=== PATIENT | male | born 1995 | race Caucasian/White ===

== ENCOUNTER 2017-01-07 12:03 | Emergency (ER) | payer OTHER ==
[~2017-01-07] VITALS: Ht 193 cm; Wt 108.8 kg
[2017-01-07 12:09] VITALS: BP 141/75; PULSE 70; TEMP 36.7; Ht 193 cm; Wt 108.8 kg
[2017-01-07 12:11] VITALS: O2SAT 96
[2017-01-07] MEDS ORDERED: ESCI10TA17 PO (12:37)
[2017-01-07] MEDS ORDERED: MULT-506 PO (12:37)
--- NOTE | 2017-01-07 13:12 | EMERGENCY ROOM VISIT NOTE ---
ED Visit Note First contact with patient: 12:44 CHIEF COMPLAINT: Rash HISTORY OF PRESENT ILLNESS: This 21-year-old male patient presents to the emergency department ambulatory complaining of a rash to the elbows and hands which started few weeks ago. The patient denies fever, chills, nausea, or loss of appetite. They deny any URI symptoms. The patient has tried topical hydrocortisone, Compound W. The patient states the rash is itchy and rates the discomfort as 4/10. No change in food, soap, detergents, or other environmental factors. No new medications. No weakness or numbness. REVIEW OF SYSTEMS: A 6 system review of systems was completed with positives and pertinent negatives listed in the HPI. ALLERGIES: Latex MEDICATIONS: See nursing notes PMH: Anxiety/depression SOCIAL HISTORY: The patient is not employed. He lives with his parents. PHYSICAL EXAM: Vital Signs: Reviewed Nurse's notes, vital signs stable. GENERAL : This is a 21-year-old male, in no acute distress, well-developed, well- nourished. SKIN: There are multiple scattered, papular vesicles over the lateral aspects of the fingers and dried areas that are papular lesions to the elbows. Capillary refill less than 2 seconds. EMERGENCY DEPARTMENT COURSE: The patient was seen and examined. The patient has a rash to the bilateral elbows and over the lateral aspects of the hands. It is almost vesicular in nature. This may represent a contact dermatitis or possibly dyshidrotic eczema. The exact etiology is not clear. He does not appear to be cellulitic. He does not have a fever. There is no significant redness. I do not suspect that this represents plantar warts. The patient will be given stronger topical steroid. He should follow up with dermatology if symptoms are not improving. He should return to the ER with worsening symptoms. Current/Historical Medications Scheduled Escitalopram (Lexapro), 10 MG PO DAILY Multivitamin (Multivitamin), 1 TAB PO DAILY Triamcinolone Acet (Triamcinolone Acetonide), 1 APPLN TOP BID Allergies Coded Allergies: Latex1 -Allergic Contact Dermititis (Unverified Adverse Reaction, Intermediate, RASH, 01/07/17) Vital Signs Date Time Temp Pulse Resp B/P (MAP) Pulse Ox O2 Delivery O2 Flow Rate FiO2 01/07/17 12:11 96 Room Air 01/07/17 12:09 36.7 70 20 141/75 96 Room Air Departure Information Impression Primary Impression: Dermatitis Dispostion Home / Self-Care Condition GOOD Prescriptions Triamcinolone Acet (Triamcinolone Acetonide) 45 Appln/15 Gm Oint 1 APPLN TOP BID for 7 Days, #1 TUBE Prov: Richelle Garsia PA-C 01/07/17 Referrals No Doctor, Assigned (PCP) Patient Instructions Contact Dermatitis, ED Dermatitis Atopic Eczema, My [facility] Additional Instructions Try the steroid cream for 1 week Recheck with your family doctor or follow up with dermatology Return with worsening symptoms
[2017-01-07] MEDS ORDERED: TRMO115 TOP (13:20)
== END 2017-01-07 13:35 | disposition home or self-care (01) ==
LOC: C.EDB 12:04 → C.EDD 13:35
DX: L30.9 Dermatitis, unspecified (principal); F41.9 Anxiety disorder, unspecified; F32.9 Major depressive disorder, single episode, unspecified; Z79.899 Other long term (current) drug therapy

== ENCOUNTER → 2017-06-16 | Outpatient (CLI) | payer BC, OTHER ==
[~2017-06-16] MED LIST: ESCI10TA17 PO; MULT-506 PO
--- NOTE | 2017-06-19 11:12 | POLYSOMNOGRAPH REPORT ---
CLINICAL DATA: 22-year-old male with BMI of 29.[address] Manzo and Dr. Artem Flowers for evaluation of snoring and possible sleep apnea. On the evening of 06/16/2017, a home sleep apnea test was performed using a [employer] type 3 monitor. RECORDING RESULTS: Total recording time was 10 hours. The patient's monitoring time and estimated sleep time was 7.6 hours. RESPIRATORY DATA: There was no evidence of clinically significant sleep apnea seen. The RADHA was 1.4. There were 6 obstructive and 4 central apneic episodes and 1 hypopneic episode recorded. The longest respiratory event was 21 seconds. OXIMETRY DATA: No hypoxemia was seen. Oxygen donal was 92%. Mean saturation was 96%. HEART RATE DATA: Heart ranged from 39 to 56 beats per minute. SNORING DATA: Loud snoring was recorded throughout the night. IMPRESSION: No evidence of clinically significant sleep apnea/hypopnea or nocturnal hypoxemia to explain this patient's symptoms. RECOMMENDATIONS: The patient should return to see Dr. Manzo for evaluation. [facility]
== END | disposition home or self-care (01) ==
LOC: C.NEUR 14:45
DX: G47.33 Obstructive sleep apnea (adult) (pediatric) (principal)